=== PATIENT | female | born 1960 | race Caucasian/White ===

== ENCOUNTER 2020-07-07 11:48 | Emergency (ER) | payer OTHER, BC, SELFPAY ==
[2020-07-07 12:01] VITALS: BP 130/99; PULSE 90; RESP 20; TEMP 36.3; O2SAT 99
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
[2020-07-07 12:06] VITALS: BP 130/99; PULSE 90; RESP 20; TEMP 36.3; O2SAT 99
== END 2020-07-07 12:44 | disposition home or self-care (01) ==
PROVIDERS: Emergency Provider Emergency Medicine; PCP Family Medicine
DX: S46.911A Strain of unspecified muscle, fascia and tendon at shoulder and upper arm level, right arm, initial encounter (principal); V43.52XA Car driver injured in collision with other type car in traffic accident, initial encounter; F41.9 Anxiety disorder, unspecified; F32.9 Major depressive disorder, single episode, unspecified
CPT/HCPCS: 99213; G0463

== ENCOUNTER 2024-06-23 12:09 | Emergency (ER) | payer MEDICARE, OTHER, SELFPAY ==
--- NOTE | 2024-06-23 12:21 | ED.WOUNDLAC ---
HPI - Wound/Laceration General Chief Complaint: Wound/Laceration Stated Complaint: Right Hand Thumb Laceration Time Seen by Provider: 06/23/24 12:30 Source: patient Mode of arrival: ambulatory Limitations: no limitations History of Present Illness HPI narrative: Laura is a 64-year-old female patient presenting to the clinic today with complaints of a right distal thumb laceration. She reports she cut on a yeast cake cutter. Tetanus is up-to-date within the last 5 months. Related Data Home Medications Medication Instructions Recorded Confirmed mecobalamin (vitamin B12) 1,000 1,000 mcg PO DAILY 06/21/24 06/23/24 mcg chewable tablet Allergies Allergy/AdvReac Type Severity Reaction Status Date / Time No Known Allergies Allergy Verified 06/23/24 12:13 Review of Systems Review of Systems: Pertinent positives per HPI. Patient denies any fever, chills, rash, headache, visual changes, dizziness, cough, runny nose, sore throat, shortness of breath, chest pain, palpitations, nausea, vomiting, diarrhea, constipation, abdominal pain, or any urinary issues. [facility] Past Medical History Medical History Actinic keratoses Anxiety 05/11/2018 Diabetes mellitus Dyslipidemia Insomnia Recurrent herpes labialis Stage 2 type 1 prediabetes Vitamin D deficiency Surgical History Surgical History History of total hysterectomy (~1991) Family History Family History Other Family history of thyroid disease Social History Social History Social History: Caffeine- coffee Smoking status: Never smoker Second hand tobacco smoke exposure: No Alcohol intake: never Substance use: never Substance use type: does not use Lack of Transportation: No Lack of Food: Never True Current Housing: I Have Housing Concerned About Future Housing: No Difficulty Paying Gas/Electric Bills: No Difficulty Paying for Meds: No Currently Unemployed: No Education: High School Diploma/GED Difficulty w/ Childcare or Family Care: No Living arrangements: with family Additional living arrangements comments: Occupation/Education: retired Gender identity (if verbalized by the patient): Female Sexual Orientation (if Verbalized by the Patient): Straight or Heterosexual Agree to blood products: Yes Comments At the time of my signature, I reviewed and agree with the nursing past medical, surgical, social, and family history. There is no relevant family history pertinent to the patient complaint. Exam Narrative: General: Well-developed, well nourished, in no apparent distress Head: Normocephalic, atraumatic. Cardio: Regular rate and rhythm, s1 and s2 normal, no murmur appreciated. Resp: Clear to auscultation bilaterally, no rhonchi, rales, wheezing or rubs. Integumentary: [place], warm, and dry, 2 cm laceration to the right distal thumb, bleeding controlled Course Course Emergency Course: Portions of this record may have been created with voice recognition software. Level of Care: Express Care Visit Vital Signs Vital signs: Vital Signs Temperature 36.7 C 06/23/24 12:25 Pulse Rate 96 06/23/24 12:25 Respiratory Rate 19 06/23/24 12:25 Blood Pressure 122/85 06/23/24 12:25 Pulse Oximetry 98 06/23/24 12:25 Oxygen Delivery Room Air 06/23/24 12:25 Temperature 36.7 C 06/23/24 12:25 Pulse Rate 96 06/23/24 12:25 Respiratory Rate 19 06/23/24 12:25 Blood Pressure 122/85 06/23/24 12:25 Pulse Oximetry 98 06/23/24 12:25 Oxygen Delivery Room Air 06/23/24 12:25 Vital signs reviewed Procedures Laceration Laceration 1: Date: 06/23/24 Site: hand (Right thumb) Side (If applicable): right Size (cm): 2 Description: linear Depth: simple, single layer Local Anesthetic: lidocaine 1% Amount of anesthesia used (mL): 1 Pre-repair: wound explored and irrigated ====== Skin Level ====== Skin layer closed with: nylon Size (cm): 5-0 Number of sutures: 8 Technique: simple, interrupted ====== Subcutaneous Layer ====== ====== Muscle Layer ====== ====== Tendon Layer ====== Dressing: Verbal consent obtained for laceration repair. Risk and benefits explained and patient voiced understanding. Area was cleansed with antiseptic wound wash in normal saline and a 27 gauge needle was then used to instill (1) ml of 1% lidocaine without epi into the wound edges. Area was prepped and draped using sterile technique. A 5-0 suture on a p needle was used to place (8) interrupted sutures bringing the wound edges together- well approximated. Patient tolerated procedure well. Sterile dressing applied. MDM - Wound/Laceration MDM Narrative Medical decision making narrative: At the time of visit patient is resting comfortably on the exam table. Patient appears to be nontoxic. Procedures: Laceration repair was performed in the clinic today. Eight interrupted sutures were placed bringing wound edges well approximate. Patient tolerated well Plan: Patient has a laceration to the right distal thumb. Laceration repair was performed. Supportive measures were discussed with the patient and they voiced understanding discharge instructions and agrees to treatment plan. Return precautions reviewed Differential Diagnosis Differential diagnosis: Likely laceration, abscess, abrasion and avulsion of skin Discharge Plan Discharge Clinical Impression: Laceration of thumb Patient Disposition: Home, Self-Care Condition: Stable Instructions: Antibiotic Form, Finger Laceration (ED) Additional Instructions: Leave bandage on for 24 hours then may remove and apply band aide covering as needed. Keep wound clean and dry Skin sutures out in 7 days. Watch for signs and symptoms of infection- redness, streaking, swelling, purulent discharge, or increase in pain. Follow up with your PCP for suture removal or return to the Express care. Prescriptions: No Action sertraline [Zoloft] 100 mg tablet 100 mg PO DAILY Qty: 90 3RF valacyclovir 1 gram tablet 2,000 mg PO Q12H PRN (Reason: cold sores) Qty: 30 0RF Rx Instructions: 2 tablets p.o. b.i.d. for 1 day with recurrence of symptoms cholecalciferol (vitamin D3) 50 mcg (2,000 unit) tablet 50 mcg PO DAILY Qty: 90 1RF doxepin 25 mg capsule 25 mg PO QHS Qty: 90 1RF mecobalamin (vitamin B12) 1,000 mcg tablet,chewable 1,000 mcg PO DAILY Mounjaro 12.5 mg/0.5 mL pen injector 12.5 mg subcut WEEKLY Qty: 2 0RF Follow-up/Referrals: Mima Del Cid MD [Primary Care Provider] - Time of Disposition: 13:01 Quality NIHSS Nursing Documentation ED NIHSS nursing documentation: reviewed/agree
[2024-06-23 12:25] VITALS: BP 122/85; PULSE 96; RESP 19; TEMP 36.7; O2SAT 98
[2024-06-23] MEDS: LIDOCAINE HCL 1% LOCAL INJ 2 ML AMPUL 4 ML INFILTRATE (12:37)
== END 2024-06-23 13:10 | disposition home or self-care (01) ==
PROVIDERS: Emergency Provider Nurse Practitioner Family; PCP Family Medicine
DX: S61.011A Laceration without foreign body of right thumb without damage to nail, initial encounter (principal); W45.8XXA Other foreign body or object entering through skin, initial encounter; E11.9 Type 2 diabetes mellitus without complications; Z79.85 Long-term (current) use of injectable non-insulin antidiabetic drugs; E78.5 Hyperlipidemia, unspecified; Z90.710 Acquired absence of both cervix and uterus
CPT/HCPCS: 12001; 99212; G0463; J2003

== ENCOUNTER 2024-06-30 08:37 | Emergency (ER) | payer MEDICARE, OTHER, SELFPAY ==
--- NOTE | 2024-06-30 08:44 | ED.WOUNDLAC ---
HPI - Wound/Laceration General Chief Complaint: Skin/Abscess/Foreign Body Stated Complaint: suture removal Time Seen by Provider: 06/30/24 08:47 Source: patient Mode of arrival: ambulatory Limitations: no limitations History of Present Illness HPI narrative: Brianna is a 64-year-old female patient presenting to the clinic today for a suture removal. Patient had a laceration to her right distal thumb from a brush cutter seven days ago. Denies any concerns. Related Data Home Medications Medication Instructions Recorded Confirmed mecobalamin (vitamin B12) 1,000 1,000 mcg PO DAILY 06/21/24 06/23/24 mcg chewable tablet Allergies Allergy/AdvReac Type Severity Reaction Status Date / Time No Known Allergies Allergy Verified 06/23/24 12:13 Review of Systems Review of Systems: Pertinent positives per HPI. Patient denies any fever, chills, rash, headache, visual changes, dizziness, cough, runny nose, sore throat, shortness of breath, chest pain, palpitations, nausea, vomiting, diarrhea, constipation, abdominal pain, or any urinary issues. [facility] Past Medical History Medical History Actinic keratoses Anxiety 05/11/2018 Diabetes mellitus Dyslipidemia Insomnia Recurrent herpes labialis Stage 2 type 1 prediabetes Vitamin D deficiency Surgical History Surgical History History of total hysterectomy (~1991) Family History Family History Other Family history of thyroid disease Social History Social History Social History: Caffeine- coffee Smoking status: Never smoker Second hand tobacco smoke exposure: No Alcohol intake: never Substance use: never Substance use type: does not use Lack of Transportation: No Lack of Food: Never True Current Housing: I Have Housing Concerned About Future Housing: No Difficulty Paying Gas/Electric Bills: No Difficulty Paying for Meds: No Currently Unemployed: No Education: High School Diploma/GED Difficulty w/ Childcare or Family Care: No Living arrangements: with family Additional living arrangements comments: Occupation/Education: retired Gender identity (if verbalized by the patient): Female Sexual Orientation (if Verbalized by the Patient): Straight or Heterosexual Agree to blood products: Yes Comments At the time of my signature, I reviewed and agree with the nursing past medical, surgical, social, and family history. There is no relevant family history pertinent to the patient complaint. Exam Narrative: General: Well-developed, well nourished, in no apparent distress Head: Normocephalic, atraumatic. Cardio: Regular rate and rhythm, s1 and s2 normal, no murmur appreciated. Resp: Clear to auscultation bilaterally, no rhonchi, rales, wheezing or rubs. Integumentary: [place], warm, and dry, intact without lesion, no rashes. Course Course Emergency Course: Portions of this record may have been created with voice recognition software. Level of Care: Express Care Visit Vital Signs Vital signs: Vital signs reviewed MDM - Wound/Laceration MDM Narrative Medical decision making narrative: At the time of visit patient is resting comfortably on the exam table. Patient appears to be nontoxic. Procedure: Iris scissors and pickups were used to remove sutures. Patient tolerated well Plan: Patient is here for encounter for suture removal. Sutures removed. Wound is well healed and without signs of infection. Supportive measures were discussed with the patient and they voiced understanding discharge instructions and agrees to treatment plan. Return precautions reviewed Differential Diagnosis Differential diagnosis: Likely laceration, abscess, abrasion, avulsion of skin and other (Suture removal, skin infection) Discharge Plan Discharge Clinical Impression: Encounter for removal of sutures Patient Disposition: Home, Self-Care Condition: Stable Instructions: Antibiotic Form, Stitches Removal (ED) Additional Instructions: Sutures were removed in the clinic today Follow-up as needed Prescriptions: No Action sertraline [Zoloft] 100 mg tablet 100 mg PO DAILY Qty: 90 3RF valacyclovir 1 gram tablet 2,000 mg PO Q12H PRN (Reason: cold sores) Qty: 30 0RF Rx Instructions: 2 tablets p.o. b.i.d. for 1 day with recurrence of symptoms cholecalciferol (vitamin D3) 50 mcg (2,000 unit) tablet 50 mcg PO DAILY Qty: 90 1RF doxepin 25 mg capsule 25 mg PO QHS Qty: 90 1RF mecobalamin (vitamin B12) 1,000 mcg tablet,chewable 1,000 mcg PO DAILY Mounjaro 12.5 mg/0.5 mL pen injector 12.5 mg subcut WEEKLY Qty: 2 0RF Follow-up/Referrals: Mima Del Cid MD [Primary Care Provider] - Time of Disposition: 08:50 Quality NIHSS Nursing Documentation ED NIHSS nursing documentation: reviewed/agree
[2024-06-30 08:51] VITALS: BP 123/73; PULSE 93; RESP 16; TEMP 37.2; O2SAT 99
== END 2024-06-30 08:56 | disposition home or self-care (01) ==
PROVIDERS: Emergency Provider Nurse Practitioner Family; PCP Family Medicine
DX: S61.011D Laceration without foreign body of right thumb without damage to nail, subsequent encounter (principal); W27.8XXD Contact with other nonpowered hand tool, subsequent encounter; E78.5 Hyperlipidemia, unspecified; E10.A Type 1 diabetes mellitus, presymptomatic
CPT/HCPCS: 99211; G0463

== ENCOUNTER 2024-07-14 08:52 | Outpatient (CLI) | payer MEDICARE, OTHER, SELFPAY ==
[2024-07-14 13:47] LABS: Creatinine Urine 90.3 mg/dL
[2024-07-14 13:58] LABS: MALB Creatinine Ratio < 6.6 mg/g (0-30); Microalbumin Urine Random < 6.0 mg/L (0-16.7)
== END 2024-07-14 08:53 | disposition home or self-care (01) ==
LOC: ANHGOSHLAB 08:53
PROVIDERS: PCP Family Medicine; Visit Provider Nurse Practitioner Family
DX: E11.9 Type 2 diabetes mellitus without complications (principal)
CPT/HCPCS: 82043